=== PATIENT | male | born 1975 | race Caucasian/White ===

== ENCOUNTER → 2024-06-16 06:32 | Day surgery (SDC) | payer OTHER, SELFPAY | LOC: GI 06:32 | PROVIDERS: ATTENDING PHYSICIAN Internal Medicine | DX: Z12.11 Encounter for screening for malignant neoplasm of colon (principal); Z86.010 Personal history of colon polyps; K57.30 Diverticulosis of large intestine without perforation or abscess without bleeding | CPT/HCPCS: G0105 ==

== ENCOUNTER → 2025-05-04 09:24 | Outpatient (REF) | payer OTHER, SELFPAY | LOC: HWRAD 09:24 | PROVIDERS: ATTENDING PHYSICIAN Otolaryngology; FAMILY PHYSICIAN Family Medicine | DX: J33.0 Polyp of nasal cavity (principal); J32.4 Chronic pansinusitis | CPT/HCPCS: 70486 ==